=== PATIENT | female | born 2000 | race Caucasian/White ===

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

== ENCOUNTER 2024-03-11 18:01 | Inpatient (IN) ==
[2024-03-11] MEDS ORDERED: LIDOCAINE 1% LOCAL 20 ML VIAL INFIL PRN (19:36)
--- NOTE | 2024-03-11 20:48 | History & Physical Report ---
Date of Service March 11, 2024 Assessment & Plan (1) Class 3 obesity: (2) : Plan: cervical ripening with Cytotec Admission and Anticipated Discharge Date Admission Date: March 11, 2024 History of Present Illness Chief Complaint: ruptured membranes Primary Care Provider: Freddie Pierre MD 22 F P0000 at 39.2 weeks admitted with SROM clear fluid. GBS is negative. Allergies Allergy/AdvReac Type Severity Reaction Status Date / Time tizanidine Allergy Vomiting Verified 03/11/24 18:30 Home Medications Medication Instructions Recorded Confirmed Type aspirin 81 mg chewable tablet 81 mg PO DAILY 03/11/24 03/11/24 History cyanocobalamin (B12)-cobamamide 1,000 marianne sublingual DAILY 03/11/24 03/11/24 History 5,000 mcg-100 mcg sublingual lozenge (B12) ferrous sulfate 325 mg (65 mg 325 mg PO DAILY 03/11/24 03/11/24 History iron) tablet (iron) vitamins-iron fumarate 65 1 tab PO DAILY 03/11/24 03/11/24 History mg iron-folic acid 1 mg tablet venlafaxine 75 mg tablet 75 mg PO DAILY 03/11/24 03/11/24 History Patient History Medical History Pre-diabetes Migraines Anemia PCOS (polycystic ovarian syndrome) On metformin and mounjaro prior to Anxiety on effexor daily Surgical History H/O laparoscopy cyst removed from ovaries. 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 @ [employer] Feels Safe at Home: Yes Safety Concerns: Feels Safe At This Time Assistive Devices: None 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 PCOS laparroscopy Review of Systems All systems reviewed & are unremarkable except as noted in HPI & below Physical Exam Constitutional: WD/WN, vitals as above Eyes: PERRL, conjunctivae normal, anicteric sclerae Respiratory: normal respiratory effort, lungs clear to auscultation Cardiovascular: Rate/Rhythm: regular rate and regular rhythm Gastrointestinal (Abdomen): Inspection/Auscultation: abdomen normal to inspection Musculoskeletal: Extremities: extremities normal to inspection Skin: no rashes, warm and dry Neurologic: patellar DTR's 2+ bilat, sensation intact Psychiatric: A+Ox3, euthymic affect Genitourinary: OB Exam Abdomen: + fundal height and + vertex Manual OB Exam: + cervical dilation fingertip, + cervical effacement 50% and + station high OB Exam Monitor Tracing: + external FHT monitor used, + external uterine monitor used, + category I and + normal FHT variability cervix posterior, firm EFW 8-8.5 lbs. Results & Data Vital Signs (Past 12 Hours) Vital Signs Temp Pulse Resp BP 03/11/24 19:17 78 124/67 03/11/24 18:17 36.8 C 16 03/11/24 18:12 75 130/68 Monitoring External Monitor Cat 1 (2) Weeks of gestation: 39 weeks Qualified Code(s): Z3A.39 - 39 weeks gestation of
[2024-03-11 20:58] LABS: Hematocrit (blood only) 36.1 % (37.0-47.0); Mean Corpuscular Hemoglobin 30.2 pg (25.0-34.0); Mean Corpuscular Hgb Conc 33.2 g/dL (32.0-36.0); Mean Corpuscular Volume 90.7 fL (80.0-100.0); Mean Platelet Volume 9.4 fL (9.4-12.4); Platelet Count 220 K/uL (130-400); RDW Standard Deviation 43.2 fL (36.4-46.3); Red Blood Count 3.98 M/uL (4.20-5.40); White Blood Count 10.78 K/ul (4.8-10.8)
[2024-03-11] MEDS: miSOPROStoL 50 MCG TAB PO SCH (21:18)
--- OUTSIDE RECORDS SUMMARY | 2024-03-12 01:25 | External Medical Summary | Summary of Care ---
Author Name Unknown Organization [facility] Address [address] [facility] [place] [address] Phone [phone] Care Team Providers Care Artillery Officer Name Role Phone Freddie Pierre MD Primary Care Provider [phone] Encounter Details Date Type Department Care Team (Late st Contact Info) Description 03/08/2024 Telephone [facility] [address] [place] [address] Coco Farrell CRNP [address] [place] [id number] Allergies Active Allergy Reactions Criticality Noted Date Comments Tizanidine Nausea/vomiting 07/03/2023 documented as of this encounter (statuses as of 03/08/2024) Medications Medication Sig Dispensed Refills Start Date End Date Status Acetaminophen 325 MG Oral Tablet (Tylenol) Take 3 Tablets by mouth every 8 hours as needed for Pain, Mild or Pain, Moderate. Alternate with Ibuprofen 30 Tablet 1 09/30/2022 Active busPIRone HCl 5 MG Oral Tablet (Buspar)Indications:A nxiety Take 1 Tablet by mouth in the morning and 1 Tablet before bedtime. 60 Tablet 1 04/26/2023 Active Vitamin 27-0.8 MG Oral Tablet Take 1 Tablet by mouth daily. Active Ondansetron 4 MG Oral Tablet Disintegrating (Zofran) Place 1 Tablet on tongue every 8 hours as needed for Nausea. dissolve on tongue. 45 Tablet 1 09/26/2023 Active Aspirin 81 MG Oral Tablet ChewableIndications:S upervision of high risk , antepartum Take 1 Tablet by mouth daily. 90 Tablet 2 10/10/2023 Active Vitamin B-12 1000 MCG Oral Tablet (Cyanocobalamin) Take 1 Tablet by mouth daily. 90 Tablet 12/27/2023 Active Ferrous Sulfate 325 (65 Fe) MG Oral Tablet (Feosol) Take 1 Tablet by mouth daily. 90 Tablet 12/27/2023 Active Venlafaxine HCl ER 37.5 MG Oral Capsule Extended Release 24 Hour (Effexor XR)Indications:Depres julianne complicating , antepartum Take 1 Capsule by mouth in the morning. 30 Capsule 2 02/13/2024 Active documented as of this encounter (statuses as of 03/08/2024) Active Problems Problem Noted Date Diagnosed Date Fall (on) (from) unspecified stairs and steps, initial encounter 02/09/2024 Antepartum anemia complicating 024 Overview: Taking iron and vitamin B12. Needs repeat CBC NEXT appointment. Abnormal glucose tolerance in mother complicatin g 01/24/2024 Vaginal bleeding in , third trimester 0 01/03/2024 Anxiety during 09/12/2023 Overview: Desires medication. Prescription sent for Zoloft. Denies suicidal or homicidal thoughts. Patient will call the office with any concerns. Supervision of high risk , antepartum 1 09/20/2022 Overview: Estimated Date of Delivery: 03/16/24 Continue vitamin. O positive. Rubella and varicella immune. Qnatal testing low risk. MSAFP testing ordered. S/p anatomy ultrasound. S/p CBC - anemia on iron and vitamin B12. Abnormal 1 hour glucose test. Patient is going to test blood sugars for [address] of the 3 hour glucose test. Patient is going to send blood sugars via [employer] Tdap vaccine completed. GBS culture at 36 weeks. Completed influenza vaccine and covid vaccine. Formula feeding. contraception: condoms. Needs scheduled induction due to patient's fiance being refrigerated national truck driver. [place] delivery. Medication exposure during first trimester of pr egnancy 07/20/2023 Overview: Metformin, Mounjaro, Imitrex as needed, Zofran as needed, Buspar as needed Patient stopped medications with knowledge of . Encounter for gynecological examination with abnormal finding 02/28/2023 Vaginal odor 02/28/2023 Class 2 obesity in adult 10/25/2022 Female infertility 10/03/2022 Abnormal uterine bleeding (AUB) 06/29/2022 PCOS (polycystic ovarian syndrome) 04/27/2022 Overview: Advised early one hour glucose test. Chronic rhinitis 04/27/2022 Migraine without aura and wi thout status migrainosus, not intractable 04/27/2022 Scalp psoriasis 02/18/2020 FH: skin cancer 02/03/2020 Headache 08/21/2013 Overview: ICD-10 update of inactive term Estimated Date of Delivery Comme nts Yes 03/16/2024 Based on last me nstrual period of 06/10/2023 (Exact Date) documented as of this encounter (statuses as of 03/08/2024) Resolved Problems Problem Noted Date Diagnosed Date Resolved Date Left SUPRCONDYL FX HUMERUS-CL 05/21/2007 08/21/2013 ADVANCE DIRECTIVE INFORMATION 01/21/2005 02/03/2020 Overview: Not applicable (under age of 18) Febrile convulsion 11/01/2002 4 documented as of this encounter (statuses as of 03/08/2024) Immunizations Name Administration Dates Next Due COVID-19 mRNA, LNP-s, No Pre serve, 2-Dose Series (ProHatch) 08/12/2021 COVID-19, LNP-s, No Preserve , Michael-sucrose, Ages 12+ (ProHatch) 09/09/2021 DTaP Dipth/Tet/Acell Pertussis (Infanrix), Peds 03/02/2007,02/10/2003,02/08/2002,11/02,2001 HIB Hep B - HIB Hepatitis B (Comvax) 2001, 2001 HIB PRP-OMP, 3 dose (Pedvax) 11/01/2002 HIB PRP-T, 4 Dose, PF, IM (H iberix, ActHib) 02/08/2002 HPV Vaccine, 4-Valent 11/22/2012 HPV Vaccine, 9-Valent 09/16/2016,03/10/2016 Hepatitis A Vaccine 03/02/2007,12/28/2005 Hepatitis A, Ped/Adol., 18 y ear and below, 2-Dose 03/02/2007,12/28/2005 Hepatitis B, 0-19 yrs 05/21/2002 IPV - Polio Virus Vaccine (Inact) 2006,02/10/2003,2001,09/07 MMR - Measles/Mumps/Rubella Vaccine 03/02/2007,0 08/05/2002 Meningococcal Conjugate Vacc ine (Menactra/Menveo) 02/26/2018,11/22/2012 Meningococcal MCV4P Conjugat e Vaccine (Menactra) 02/26/2018,11/22/2012 PPD 01/15/2024, 4,12/08/2022,11/28,02/01/2020,07/28/2017,03/02/2004 Pneumococcal Conjugate Vacci ne, 7 Valent 11/01/2002,02/08/2002,2001,09/07 Seasonal Influenza Virus Vac cine, Unspecified Formulation 08/02/2019,05/28/2018,06/03/2013,06/13,05/06/2005 Seasonal Influenza, PF, 6 M & above, IM , (FluLaval or Fluzone) 05/16/2022,04/22/2021,05/07/2020,08/02,05/28/2018 Seasonal Influenza, Split, I IV3, With Preserve, Inj 06/03/2013,06/13/2008,05/06/2005 TDAP (age 10 and older)(Boostrix) 12/26/2023,,11/22/2012 Varicella Vaccine (Chicken Pox) 03/02/2007,08/05 documented as of this encounter Social History Tobacco Use Types Packs/Day Years Used Date Smoking Tobacco: Never Smokeless Tobacco: Never Alcohol Use Standard Drinks/Week Comments Not Currently 0 (1 standard drink = 0.6 oz pur e alcohol) rare PHQ-2 Answer Date Recorded PHQ Adult Total Score 1 12/26/2023 Hunger Vital Sign Answer Date Recorded Within the past 12 months, y ou worried that your food would run out before you got the money to buy more. Patient declined Within the past 12 months, t he food you bought just didn't last and you didn't have money to get more. Patient declined [place] Depression Scale Answer Date Recorded [place] Depression Scale Total 12 02/13/2024 The thought of harming myself has occurred to me . Never 02/13/2024 Childcare Answer Date Recorded Do you feel overwhelmed with taking care of a child, family member or friend? No 02/17/2023 Does your family need help f inding childcare? (Household - for ages 0-17 years) Not on file 02/17/2023 Clothing Answer Date Recorded Have you been unable to get clothing when it was really needed? No 02/17/2023 Is your family able to get c lothes or diapers when needed? (Household - for ages 0-17 years) Not on file 02/17/2023 Personal Safety Answer Date Recorded Do you feel unsafe or have concerns for your saf ety? No 02/17/2023 Do you have concerns for you r family's safety? (Household - for ages 0-17 years) Not on file 02/17/2023 Utilities Answer Date Recorded Do you have trouble paying y our heating, water, or electric bill? (Adult - for ages 18 years and over) Not on file 02/20/2024 Is your family able to pay t he heat, water, or electric bill? (Household - for ages 0-17 years) Not on file 02/20/2024 Does your family have access to good internet? (Household - for ages 0-17 years) Not on file 02/20/2024 Employment Status Answer Date Recorded Are you unemployed or without regular income? No 02/17/2023 Does the household have a re gular source of income? (Household - for ages 0-17 years) Not on file 02/17/2023 Social Connections Answer Date Recorded How often do you feel lonely or isolated from those around you? (Adult - for ages 18 years and over) Not on file 02/20/2024 Financial Resource Strain Answer Date R ecorded Do you have any trouble payi ng for your medications, or do you think you might in the future? No 02/17/2023 Does your family have troubl e paying for medicine? (Household - for ages 0-17 years) Not on file 02/17/2023 Transportation Needs Answer Date Record ed READ ONLY Do you have troubl e getting a ride to medical visits or work? Never True 02/17/2023 Does your family have a hard time getting a ride to doctors visits? (Household - for ages 0-17 years) Not on file 02/17/2023 Has lack of transportation k ept you from medical appointments, meetings, work, or from getting things needed for daily living? Check all that apply. (Adult - for ages 18 years and over) Not on file 02/17/2023 Do you (or your family) have trouble finding or paying for a ride (transportation)? (Household - for ages 0-17 years) Not on file 02/17/2023 Housing Stability Answer Date Recorded Do you currently live in a s helter or have no steady place to sleep at night? No 02/17/2023 READ ONLY Do you think you a re at risk of becoming homeless? No 02/17/2023 Does your family worry about paying for your home or becoming homeless? (Household - for ages 0-17 years) Not on file 0 02/17/2023 Are you homeless or worried that you might be in the future? (Adult - for ages 18 years and over) Not on file Are you (or your family) adela eless or worried that you might be in the future? (Household - for ages 0-17 years) Not on file Food Insecurity Answer Date Recorded Do you need food for this week? No 02/17/2023 Are you able to get enough f ood for your family? (Household - for ages 0-17 years) Not on file 02/17/2023 Does your family need food t his week? (Household - for ages 0-17 years) Not on file 02/17/2023 Do you always have enough fo od for your family? (Household - for ages 0-17 years) Not on file 02/17/2023 Estimated Date of Delivery Comme nts Yes 03/16/2024 Based on last me nstrual period of 06/10/2023 (Exact Date) Sex and Gender Information Value Date Recorded Sex Assigned at Female 02/23/2021 2:38 PM EDT Gender Identity Female 02/23/2021 2:38 PM EDT Sexual Orientation Straight 02/23/2021 2: 38 PM EDT Job Start Date Occupation Industry Not on file Not on file Not on file documented as of this encounter Miscellaneous Notes * Telephone Encounter - Yi Alvarado RN - 03/08/2024 3:45 PM EDT Pt is aware and understanding. She will check her next appt to see if there have been other dates that have opened. Pt advised that the chance to still get bumped due to the elective nature may occur. Pt aware. * Telephone Encounter - Ella Mack LPN - 03/08/2024 3:32 PM EDT Due to another medically necessary induction, patients IOL had to be moved to 03/21. This was L+Ds first available. documented in this encounter Plan of Treatment Upcoming Encounters Date Type Department Care Team (Late st Contact Info) Description 03/13/2024 8:15 AM EDT Office [facility] [address] [place] [id number] Coco Farrell CRNP [address] [place] [address] 09/10/2024 9:20 AM EST Telemedicine Endocrinology [address] [place] [phone] Remy Tavarez, DO [address] [place] [address] [place] [id number] Health Maintenance Due Date Last Done Comments COVID-19 Vaccine ( season) 2023 09/09/2021, 08/12/2021 Influenza Vaccine (FLU shot) (#1) 2024 05/23/2023, 10/24/2022, 05/16/2022, Additional history exists Gonorrhea / Chlamydia Screen 07/18/2024, 02/28/2023, 02/23/2021, Additional history exists Depression Screening 12/25/2024 12/26/2023 Pap Smear 02/28/2026 02/28/2023 DTaP,Tdap,and Td Vaccines (9 - Td or Tdap) 12/25/2033 12/26/2023, 08/09/2019, 11/22/2012, Additional history exists Hepatitis B Vaccine Completed 05/21/2002, 2001, 2001 HPV (Gardasil) Vaccine Completed 7, 03/10/2016, 11/22/2012 MENINGOCOCCAL (MENACTRA/MENVEO) Completed 02/26/2018, 02/26/2018, 11/22/2012, Additional history exists Pneumococcal Vaccine: Pediatrics (0 to 5 Years) and At-Risk Patients (6 to 64 Years) Aged Out No longer eligible based on patient's age to complete this topic documented as of this encounter Medical Devices Implanted Type Area Information Management Manager Device Identifier Shelf Expiration Date Model / Serial / Lot K-Wire .062 9in [id number] - [id number] Implanted:Qty: 2 on 05/22/2007 at [facility] Left: Elbow [employer] [id number] / / K-Wire .045 9in [id number] - [id number] Implanted:Qty: 1 on 05/22/2007 at [facility] Left: Elbow [employer] [id number] / / documented as of this encounter Advance Directives * Full Code (Latest Code Status on File) Date Activated Date Inactivated Comments 09/30/2022 10:47 AM 09/30/2022 5:09 PM This order reflects the patients wishes and were consensually agreed upon. Question Answer Comments Discussion of Advance Directives occurred with: Patient * Full Code Date Activated Date Inactivated Comments 07/27/2021 11:55 AM 07/27/2021 5:31 PM This order re flects the patients wishes and were consensually agreed upon. Question Answer Comments Discussion of Advance Directives occurred with: Not Discussed * Full Code Date Activated Date Inactivated Comments 05/22/2007 10:49 AM 05/22/2007 9:07 PM Care Teams Artillery Officer Relationship Specialty Start Date End Date Freddie Pierre MD [address] [place] [address] PCP - General Family Medicine 05/30/13 documented as of this encounter
--- OUTSIDE RECORDS SUMMARY | 2024-03-12 01:25 | External Medical Summary | Summary of Care ---
Author Name Unknown Organization [facility] Address [address] [facility] [place] [address] Phone [phone] Care Team Providers Care Assistant To The Director Name Role Phone Freddie Pierre MD Primary Care Provider [phone] Reason for Visit * Reason Comments Return Visit Encounter Details Date Type Department Care Team (Late st Contact Info) Description 03/06/2024 8:15 AM EDT Office Visit Gynecology/Obstetric s [facility] [address] [place] [address] Coco Farrell CRNP [address] [place] [address] PCOS (polycystic ovarian syndrome)*; Supervision of high risk , antepartum; Medication exposure during first trimester of ; Anxiety during ; Antepartum anemia complicating ; Abnormal glucose tolerance in mother complicating ; Fall (on) (from) unspecified stairs and steps, initial encounter Allergies Active Allergy Reactions Criticality Noted Date Comments Tizanidine Nausea/vomiting 07/03/2023 documented as of this encounter (statuses as of 03/06/2024) Medications Medication Sig Dispensed Refills Start Date [...] as of this encounter (statuses as of 03/06/2024) Active Problems Problem Noted Date Diagnosed Date [...] is going to send blood sugars via [facility]. Tdap vaccine completed. GBS culture at 36 weeks. Completed influenza vaccine and covid vaccine. Formula feeding. contraception: condoms. Needs scheduled induction due to patient's fiance being diesel truck mechanic. [facility] [place] delivery. Medication exposure during first trimester of [...] as of this encounter (statuses as of 03/06/2024) Resolved Problems Problem Noted Date Diagnosed Date Resolved Date Left SUPRCONDYL FX HUMERUS-CL 05/21/2007 08/21/2013 ADVANCE DIRECTIVE INFORMATION 01/21/2005 02/03/2020 Overview: Not applicable (under age of 18) Febrile convulsion 11/01/2002 4 documented as of this encounter (statuses as of 03/06/2024) Immunizations Name Administration Dates Next Due COVID-19 mRNA, LNP-s, No Pre serve, 2-Dose Series ([place]ok) 08/12/2021 COVID-19, LNP-s, No Preserve , Michael-sucrose, Ages 12+ (Pfizer) 09/09/2021 DTaP Dipth/Tet/Acell Pertussis (Infanrix), Peds 03/02/2007 HPV Vaccine, 4-Valent 11/22/2012 HPV Vaccine, 9-Valent 09/16/2016,03/10/2016 Hepatitis A Vaccine 03/02/2007,12/28/2005 Hepatitis A, Ped/Adol., 18 y ear and below, 2-Dose 03/02/2007,12/28/2005 IPV - Polio Virus Vaccine (Inact) 03/02/2007 MMR - Measles/Mumps/Rubella Vaccine 03/02/2007 Meningococcal Conjugate Vacc ine (Menactra/Menveo) 02/26/2018,11/22/2012 Meningococcal MCV4P Conjugat e Vaccine (Menactra) 02/26/2018,11/22/2012 PPD 01/15/2024,,12/08/2022,11/28,02/01/2020,07/28/2017 Seasonal Influenza Virus Vac cine, Unspecified Formulation 08/02/2019,05/28/2018,06/03/2013,06/13,05/06/2005 Seasonal Influenza, PF, 6 M & above, IM , (FluLaval or Fluzone) 05/16/2022,04/22/2021,05/07/2020,08/02,05/28/2018 Seasonal Influenza, Split, I IV3, With Preserve, Inj 06/03/2013,06/13/2008 TDAP (age 10 and older)(Boostrix) 12/26/2023,,11/22/2012 Varicella Vaccine (Chicken Pox) 03/02/2007 documented as of this encounter Social History [...] have money to get more. Patient declined [place] Depression Scale Answer Date Recorded [place] Depression Scale Total 12 02/13/2024 The thought [...] on file documented as of this encounter Last Filed Vital Signs Vital Sign Reading Time Taken Comments Blood Pressure 116/76 03/06/2024 8:06 AM EDT Pulse - - Temperature - - Respiratory Rate - - Oxygen Saturation - - Inhaled Oxygen Concentration - - Weight 119.3 kg (263 lb) 03/06/2024 8:06 AM EDT Height - - Body Mass Index 39.99 02/27/2024 11:39 AM EDT documented in this encounter Progress Notes * Coco Farrell CRNP - 03/06/2024 8:25 AM EDT 38w4d Anxious about delivery, concerned about hemorrhage. No other concerns. Baby is active. No contractions, bleeding, LOF. IOL 03/14. JOSE F Adams * Faith Obregon LPN - 03/06/2024 8:05 AM EDT 38w4d Denies vaginal bleeding/rom + movement No new concerns documented in this encounter Plan of Treatment Upcoming Encounters Date Type Department Care Team (Late st Contact Info) Description 03/13/2024 8:15 AM EDT Office Visit [facility]necology[facility]s [facility] [place] [address] Coco Farrell CRNP [address] [place] [address] 09/10/2024 9:20 AM EST Telemedicine Endocrinology [address] [place] [phone] Remy Tavarez, DO [address] [place] [address] [place] [address] Health Maintenance Due Date Last Done Comments COVID-19 Vaccine (2022- season) 2023 09/09/2021, 08/12/2021 Influenza Vaccine (FLU [...] this encounter Medical Devices Implanted Type Area Cash Posting Specialist Device Identifier Shelf Expiration Date Model / Serial / Lot K-Wire .062 9in 1600-962ns - [id number] [place] [facility] [place] Elbow Micro-Aire 1600-962NS / / K-Wire .045 9in 1600-945ns - [id number] Implanted:Qty: 1 on 05[place]22/2007 [place] [facility] [place] Elbow Micro-Aire 1600-945NS / / documented as of this encounter Visit Diagnoses Diagnosis PCOS (polycystic ovarian syndrome)- Primary Polycystic ovaries Supervision of high risk , antepartum Medication exposure during first trimester of Supervision of other high-risk Anxiety during Antepartum anemia complicating Anemia, antepartum Abnormal glucose tolerance in mother complicating Abnormal maternal glucose tolerance, complicating , childbirth, or the puerperium, unspecified as to episode of care Fall (on) (from) unspecified stairs and steps, initial encounter documented in this encounter Advance Directives * Full Code [...] 10:49 AM 05/22/2007 9:07 PM Care Teams Assistant To The Director Relationship Specialty Start Date End Date Freddie Pierre MD [address] [place] [id number] PCP - General Family Medicine 05/30/13 documented as of this encounter
--- OUTSIDE RECORDS SUMMARY | 2024-03-12 01:25 | External Medical Summary | Summary of Care ---
Author Name Unknown Organization [facility] Address [address] [facility] [place] [address] Phone [phone] Care Team Providers Care It Application Support Analyst Name Role Phone Freddie Pierre MD Primary Care Provider [phone] Encounter Details Date Type Department Care Team (Late st Contact Info) Description 03/08/2024 Telephone [facility]necology[facility]st[facility]s [facility] [address] [place] [address] Coco Farrell CRNP [address] [place] [...] is going to send blood sugars via [employer]. Tdap vaccine completed. GBS culture at 36 weeks. Completed influenza vaccine and covid vaccine. Formula feeding. contraception: condoms. Needs scheduled induction due to patient's fiance being overhauler bus truck. [place] delivery. Medication exposure during first trimester of [...] mRNA, LNP-s, No Pre serve, 2-Dose Series ([employer]) 08/12/2021 COVID-19, LNP-s, No Preserve , Michael-sucrose, Ages 12+ ([employer]) 09/09/2021 DTaP Dipth/Tet/Acell Pertussis (Infanrix), Peds 03/02/2007,02/10/2003,02/08/2002,11/02,2001 [...] have money to get more. Patient declined [place] Depression Scale Answer Date Recorded [place] Depression Scale Total 12 02/13/2024 The thought [...] on file Are you (or your family) adlea eless or worried that you might be [...] 03/13/2024 8:15 AM EDT Office Visit Gynecology/[facility]stetrics [facility] [address] [place] [address] Coco Farrell CRNP [address] [place] [address] 09/10/2024 9:20 AM EST Telemedicine Endocrinology [address] [place] [phone] Remy Tavarez, DO [address] [place] [address] [place] [address] Health Maintenance Due Date Last Done Comments [...] this encounter Medical Devices Implanted Type Area Traffic Signal Mechanic Device Identifier Shelf Expiration Date Model / Serial / Lot K-Wire .062 9in 1600-962ns - [id number] Implanted:Qty: 2 on 05/22/2007 at OR [facility] Left: Elbow Micro-Aire 1600-962NS / / K-Wire .045 9in 1600-945ns - [id number] Implanted:Qty: 1 on 05/22/2007 at OR [facility] Left: Elbow Micro-Aire 1600-945NS / / documented [...] 10:49 AM 05/22/2007 9:07 PM Care Teams It Application Support Analyst Relationship Specialty Start Date End Date Freddie Pierre MD [address] [place] [address] PCP - General Family Medicine 05/30/13 documented as of this encounter
--- OUTSIDE RECORDS SUMMARY | 2024-03-12 01:26 | External Medical Summary | Summary of Care ---
Author Name Unknown Organization [facility] Address [address] [place] [address] Phone [phone] Care Team Providers Care Plate Conditioner Name Role Phone Freddie Pierre MD Primary Care Provider [phone] Encounter Details Date Type Department Care Team (Late st Contact Info) Description 02/09/2024 11:45 AM EDT Office Visit Gynecology/Obstetric [facility] [address] [facility] [place] [address] Mony Welsh CN [address] [place] [address] PCOS (polycystic ovarian syndrome)*; Supervision of high risk , antepartum; Medication exposure during first trimester of ; Anxiety during ; Antepartum anemia complicating ; Abnormal glucose tolerance in mother complicating ; Fall (on) (from) unspecified stairs and steps, initial encounter Allergies Active Allergy Reactions Criticality Noted Date Comments Tizanidine Nausea/vomiting 07/03/2023 documented as of this encounter (statuses as of 02/09/2024) Medications Medication Sig Dispensed Refills Start Date End Date Status Acetaminophen 325 MG Oral Tablet (Tylenol) Take 3 Tablets by mouth every 8 hours as needed for Pain, Mild or Pain, Moderate. Alternate with Ibuprofen 30 Tablet 1 09/30/2022 Active busPIRone HCl 5 MG Oral Tablet (Buspar)Indications:An xiety Take 1 Tablet by mouth in the morning and 1 Tablet before bedtime. 60 Tablet 1 04/26/2023 Active Vitamin 27-0.8 MG Oral Tablet Take 1 Tablet by mouth daily. Active Sertraline HCl 50 MG Oral Tablet (Zoloft)Indications:An xiety during Take 1/2 tablet by mouth daily for 2 weeks and then increase to 1 tablet by mouth daily. 30 Tablet 6 09/12/2023 Active Ondansetron 4 MG Oral Tablet Disintegrating (Zofran) Place 1 Tablet on tongue every 8 hours as needed for Nausea. dissolve on tongue. 45 Tablet 1 09/26/2023 Active Aspirin 81 MG Oral Tablet ChewableIndications:Rojo pervision of high risk , antepartum Take 1 Tablet by mouth daily. 90 Tablet 2 10/10/2023 Active Vitamin B-12 1000 MCG Oral Tablet (Cyanocobalamin) Take 1 Tablet by mouth daily. 90 Tablet 12/27/2023 Active Ferrous Sulfate 325 (65 Fe) MG Oral Tablet (Feosol) Take 1 Tablet by mouth daily. 90 Tablet 12/27/2023 Active documented as of this encounter (statuses as of 02/09/2024) Active Problems Problem Noted Date Diagnosed Date [...] is going to send blood sugars via [employer]. Tdap vaccine completed. GBS culture at 36 weeks. Completed influenza vaccine and covid vaccine. Formula feeding. contraception: condoms. Needs scheduled induction due to patient's fiance being catering truck driver. [facility] [place] delivery. Medication exposure during first [...] as of this encounter (statuses as of 02/09/2024) Resolved Problems Problem Noted Date Diagnosed Date Resolved Date Left SUPRCONDYL FX HUMERUS-CL 05/21/2007 08/21/2013 ADVANCE DIRECTIVE INFORMATION 01/21/2005 02/03/2020 Overview: Not applicable (under age of 18) Febrile convulsion 11/01/2002 4 documented as of this encounter (statuses as of 02/09/2024) Immunizations Name Administration Dates Next Due COVID-19 mRNA, LNP-s, No Pre serve, 2-Dose Series (Pfizer) 08/12/2021 COVID-19, LNP-s, No Preserve , Michael-sucrose, [...] Conjugat e Vaccine (Menactra) 02/26/2018,11/22/2012 PPD 01/15/2024, 4,12/08/2022,11/28,02/01/2020,07/28/2017 Seasonal Influenza Virus Vac cine, Unspecified Formulation [...] have money to get more. Patient declined [place] Depression Scale Answer Date Recorded [place] Depression Scale Total 4 07/18/2023 The thought of harming myself has occurred to me . Never 07/18/2023 Childcare Answer Date Recorded Do you feel [...] y our heating, water, or electric bill? No 02/17/2023 Is your family able to pay t he heat, water, or electric bill? (Household - for ages 0-17 years) Not on file 02/17/2023 Does your family have access to good internet? (Household - for ages 0-17 years) Not on file 02/17/2023 Employment Status Answer Date Recorded Are you unemployed or without regular income? No 02/17/2023 Does the household have a re gular source of income? (Household - for ages 0-17 years) Not on file 02/17/2023 Social Connections Answer Date Recorded How often do you feel lonely or isolated from th ose around you? Never 02/17/2023 Financial Resource Strain Answer Date R ecorded [...] Sign Reading Time Taken Comments Blood Pressure 120/72 02/09/2024 11:50 AM EDT Pulse - - Temperature - - Respiratory Rate - - Oxygen Saturation - - Inhaled Oxygen Concentration - - Weight 113.4 kg (250 lb) 02/09/2024 11:50 AM EDT Height 172.7 cm (5' 8") 02/09/2024 11:50 AM EDT Body Mass Index 38.01 02/09/2024 11:50 AM EDT documented in this encounter Progress Notes * Mony Welsh CNM - 02/09/2024 11:56 AM EDT ty Monsalve 23 yo @ 34.6 wks presents today after having fallen on her butt down 5 steps yesterday. She did go to the ED, where she reports FHTs were done by Doppler. They also bandaged a laceration on ankle. Denies VB, LOF, cxns. Reports normal FM since the fall. ASSESSMENT assessment with Non-stress Test completed on 02/09/2024 at 34.6 weeks gestation for indicationof a fall >24hrs ago heart baseline: 130 bpm Variability: Moderate Decelerations: absent Accelerations: present Contractions: None NST start time: 1153 NST stop time: 1237 NST strip reviewed, interpreted, and approved by OB provider, Mony Welsh CNM. NST strip stored in clinic storage file documented in this encounter Nursing Notes * Julia Salinas LPN - 02/09/2024 11:52 AM EDT 34w6d Pt fell down the stairs yesterday landed on tailbone Went to [facility] ER was not seen by L&D documented in this encounter Plan of Treatment Upcoming Encounters Date Type Department Care Team (Late st Contact Info) Description 02/13/2024 8:15 AM EDT Imaging Radiology, [address] [address] 02/13/2024 9:15 AM EDT Office Visit Gynecology/Obstetics [address] [place] [phone] Rita Callaway PA-C [address] [facility] [place] [phone] 09/10/2024 9:20 AM EST Telemedicine Endocrinology [address] [place] [phone] Remy Tavarez, [address] [place] [address] Health Maintenance Due Date Last Done Comments [...] this encounter Medical Devices Implanted Type Area Liaison Inspection Laboratory Assistant Device Identifier Shelf Expiration Date Model / Serial / Lot K-Wire .062 9in 1600-962ns - [id number] Implanted:Qty: 2 on 05/22/[address] [facility] Left: Elbow Micro-Aire 1600-962NS / / K-Wire .045 9in 1600-945ns - [id number] Implanted:Qty: 1 on 05/22/[address] [facility] Left: Elbow Micro-Aire 1600-945NS / / documented [...] 10:49 AM 05/22/2007 9:07 PM Care Teams Plate Conditioner Relationship Specialty Start Date End Date Freddie Pierre MD [address] [place] [address] PCP - General Family Medicine 05/30/13 documented as of this encounter
--- OUTSIDE RECORDS SUMMARY | 2024-03-12 01:26 | External Medical Summary | Summary of Care ---
Author Name Unknown Organization [facility] Address [address] [facility] [place] [address] Phone [phone] Care Team Providers Care Clinical Office Technician Name Role Phone Freddie Pierre MD Primary Care Provider [phone] Reason for Visit * Reason Comments Return Visit Encounter Details Date Type Department Care Team (Late st Contact Info) Description 02/27/2024 11:45 AM EDT Office Visit Gynecology/Obstetric s Chilo Dong [address] [place] [address] Coco Farrell CRNP [address] [place] [address] Supervision of high risk , antepartum*; PCOS (polycystic ovarian syndrome); Medication exposure during first trimester of ; Anxiety during ; Antepartum anemia complicating ; Abnormal glucose tolerance in mother complicating ; Fall (on) (from) unspecified stairs and steps, initial encounter Allergies Active Allergy Reactions Criticality Noted Date Comments Tizanidine Nausea/vomiting 07/03/2023 documented as of this encounter (statuses as of 02/27/2024) Medications Medication Sig Dispensed Refills Start Date [...] as of this encounter (statuses as of 02/27/2024) Active Problems Problem Noted Date Diagnosed Date [...] scheduled induction due to patient's fiance being truck guard. [facility] [place] delivery. Medication exposure during first [...] as of this encounter (statuses as of 02/27/2024) Resolved Problems Problem Noted Date Diagnosed Date Resolved Date Left SUPRCONDYL FX HUMERUS-CL 05/21/2007 08/21/2013 ADVANCE DIRECTIVE INFORMATION 01/21/2005 02/03/2020 Overview: Not applicable (under age of 18) Febrile convulsion 11/01/2002 4 documented as of this encounter (statuses as of 02/27/2024) Immunizations Name Administration Dates Next Due COVID-19 mRNA, LNP-s, No Pre serve, 2-Dose Series ([place]) 08/12/2021 COVID-19, LNP-s, No Preserve , Michael-sucrose, [...] have money to get more. Patient declined [place] Depression Scale Answer Date Recorded [place] Depression Scale Total 12 02/13/2024 The thought [...] Sign Reading Time Taken Comments Blood Pressure 118/68 02/27/2024 11:39 AM EDT Pulse - - Temperature - - Respiratory Rate - - Oxygen Saturation - - Inhaled Oxygen Concentration - - Weight 116.6 kg (257 lb) 02/27/2024 11:39 AM EDT Height 172.7 cm (5' 8") 02/27/2024 11:39 AM EDT Body Mass Index 39.08 02/27/2024 11:39 AM EDT documented in this encounter Progress Notes * Coco Farrell CRNP - 02/27/2024 12:11 PM EDT 37w3d Discussed movement. Movement has been less for weeks. Has an anterior placenta. Feeling movement daily, feels it is her baseline. Increased Effexor last week, hasn't noticed a significant improvement in mood yet. Denies bleeding, LOF. Some BH contractions. Advised to call with less than 10 movements in 2 hours. JOSE F Adams documented in this encounter Nursing Notes * Ella Mack LPN - 02/27/2024 11:45 AM EDT 37w3d Concerns with movement. Reviewed kick counts and given triage number. documented in this encounter Plan of Treatment Upcoming Encounters Date Type Department Care Team (Late st Contact Info) Description 03/06/2024 8:15 AM EDT Office Visit Gynecology/Obstetrics [facility] [address] [place] [address] Coco Farrell CRNP [address] [place] [address] 09/10/2024 9:20 AM EST Telemedicine Endocrinology [address] [place] [phone] [place] [address] Health Maintenance Due Date Last Done Comments [...] this encounter Medical Devices Implanted Type Area Batch Analyst Device Identifier Shelf Expiration Date Model / Serial / Lot K-Wire .062 9in 1600-962ns - [id number] Implanted:Qty: 2 on 05/22/2007 at [place] [facility] [place] Left: Elbow Micro-Aire 1600-962NS / / K-Wire .045 9in 1600-945ns - [id number] Implanted:Qty: 1 on 05/22/2007 at [place] [facility] [place]: Elbow Micro-Aire 1600-945NS / / documented as of this encounter Visit Diagnoses Diagnosis Supervision of high risk , antepartum- Primary PCOS (polycystic ovarian syndrome) Polycystic ovaries Medication exposure during first trimester of Supervision [...] 10:49 AM 05/22/2007 9:07 PM Care Teams Clinical Office Technician Relationship Specialty Start Date End Date Freddie Pierre MD [address] [place] [phone] PCP - General Family Medicine 05/30/13 documented as of this encounter
--- OUTSIDE RECORDS SUMMARY | 2024-03-12 01:26 | External Medical Summary ---
Author Name Unknown Address Unknown Organization [id number]:[facility] [place] [address] [place] [address] Laboratory Report Ordering Provider Test Date Status CURRYJACOB 02/13/2024 11:05:48 Final Observation Date Value Abnormality Reference (Units ) Status Streptococcus agalactiae DNA [Presence] in Specimen by KALPESH with probe detection 02/13/2024 11:05:48 Negative Negative Final No Group B Streptococcus det ected by culture-enhanced PCR (amplified probe). GBS GBSCT - [facility] 02/13/2024 11:05:48 0.0 Final GBS SPCCT - [facility] 02/13/2024 11:05:48 31.4 Final Performing Location [facility] [place] [address] [place] [address]
--- OUTSIDE RECORDS SUMMARY | 2024-03-12 01:26 | External Medical Summary | Summary of Care ---
Author Name Unknown Organization [facility] Address [address] [address] Phone [phone] Care Team Providers Care Air Traffic Instructor Name Role Phone Freddie Pierre MD Primary Care Provider [phone] Reason for Visit * Reason Comments Return Visit Encounter Details Date Type Department Care Team (Late st Contact Info) Description 02/20/2024 8:00 AM EDT Office Visit Gynecology/Obstetric s Chilo Dong [address] [place] [address] Coco Farrell CRNP [address] [place] [id number] Supervision of high risk in third trimester*; PCOS (polycystic ovarian syndrome); Medication exposure during first trimester of ; Anxiety during ; Antepartum anemia complicating ; Abnormal glucose tolerance in mother complicating Allergies Active Allergy Reactions Criticality Noted Date Comments Tizanidine Nausea/vomiting 07/03/2023 documented as of this encounter (statuses as of 02/20/2024) Medications Medication Sig Dispensed Refills Start Date [...] as of this encounter (statuses as of 02/20/2024) Active Problems Problem Noted Date Diagnosed Date [...] is going to send blood sugars via [employer]. Tdap vaccine completed. GBS culture at 36 weeks. Completed influenza vaccine and covid vaccine. Formula feeding. contraception: condoms. Needs scheduled induction due to patient's fiance being tractor trailer truck driver. [place] delivery. Medication exposure during first trimester of [...] as of this encounter (statuses as of 02/20/2024) Resolved Problems Problem Noted Date Diagnosed Date Resolved Date Left SUPRCONDYL FX HUMERUS-CL 05/21/2007 08/21/2013 ADVANCE DIRECTIVE INFORMATION 01/21/2005 02/03/2020 Overview: Not applicable (under age of 18) Febrile convulsion 11/01/2002 4 documented as of this encounter (statuses as of 02/20/2024) Immunizations Name Administration Dates Next Due COVID-19 mRNA, LNP-s, No Pre serve, 2-Dose Series ([employer]) 08/12/2021 COVID-19, LNP-s, No Preserve , Michael-sucrose, Ages 12+ ([employer]) 09/09/2021 DTaP Dipth/Tet/Acell Pertussis (Infanrix), Peds 03/02/2007 [...] have money to get more. Patient declined [place] Depression Scale Answer Date Recorded [place] Depression Scale Total 12 02/13/2024 The thought [...] 02/17/2023 Does the household have a re lar source of income? (Household - for ages [...] Sign Reading Time Taken Comments Blood Pressure 124/68 02/20/2024 7:47 AM EDT Pulse - - Temperature - - Respiratory Rate - - Oxygen Saturation - - Inhaled Oxygen Concentration - - Weight 115.7 kg (255 lb) 02/20/2024 7:47 AM EDT Height 172.7 cm (5' 8") 02/20/2024 7:47 AM EDT Body Mass Index 38.77 02/20/2024 7:47 AM EDT documented in this encounter Progress Notes * Coco Farrell CRNP - 02/20/2024 8:21 AM EDT 36w3d Transfer of care from [place], desires delivery at [facility]. Has a history of depression, was advised to stop her Effexor at the start of . Was taking 150mg daily. Put on sertraline but not helping. Last week admitted that her mooed was not good, and was restarted on 37.5mg Effexor. Has not noticed an improvement. Discussed that this needs increased. She has a fear that the hospital will think she is a bad mother for having her baby go through withdrawal from the Effexor. We had a discussion about stable maternal mental health, need for stability to help with changes. She is agreeable to increase her Effexor, will take 2 tablets daily and reassess at her next visit. She was told at [place] that IOL will be scheduled at 39w d/t her partner being a tractor trailer truck driver, so he will be home for delivery. Discussed that elective induction is typically not performed for this reason at [facility], however because she was told this would occur, we will schedule this. We discussed that elective inductions are first to be bumped for more urgent deliveries. She noticed a clear vaginal discharge 2 days ago, but none since. Does not feel that her water broke. GBS was done last week at [place] office. She denies bleeding. Some BH contractions. JOSE F Adams documented in this encounter Nursing Notes * Ella Mack LPN - 02/20/2024 7:56 AM EDT 36w2d Started effexor a week ago, no noticeable improvement yet. ?discharge documented in this encounter Plan of Treatment Upcoming Encounters Date Type Department Care Team (Late st Contact Info) Description 09/10/2024 9:20 AM EST Telemedicine Endocrinology [address] [place] [phone] Remy Tavarez, [address] [place] [address] Health Maintenance Due Date [...] Completed 02/26/2018, 02/26/2018, 11/22/2012, Additional history exists HIV Screening Completed 07/18/2023, 08/24, 02/18/2020 Hepatitis C Screening Completed 07/18/2023, 022 Pneumococcal Vaccine: Pediatrics (0 to 5 Years) and At-Risk Patients (6 to 64 Years) Aged Out No longer eligible based on patient's age to complete this topic documented as of this encounter Medical Devices Implanted Type Area Insurance Salesman Device Identifier Shelf Expiration Date Model / Serial / Lot K-Wire .062 9in [id number] - [id number] Implanted:Qty: 2 on 05/22/2007 at [place] [facility] [place] Left: El[employer] 1600-962NS / / K-Wire .045 9in [id number] - [id number] Implanted:Qty: 1 on 05/22/2007 at OR [facility] [place] Left: Elbow [employer]ire [id number] / / documented as of this encounter Visit Diagnoses Diagnosis Supervision of high risk in third trimester- Primary Unspecified high-risk PCOS (polycystic ovarian syndrome) Polycystic ovaries Medication exposure during first trimester of Supervision of other high-risk Anxiety during Antepartum anemia complicating Anemia, antepartum Abnormal glucose tolerance in mother complicating Abnormal maternal glucose tolerance, complicating , childbirth, or the puerperium, unspecified as to episode of care documented in this encounter Advance Directives * [...] 10:49 AM 05/22/2007 9:07 PM Care Teams Air Traffic Instructor Relationship Specialty Start Date End Date Freddie Pierre MD [address] [place] [id number] PCP - General Family Medicine 05/30/13 documented as of this encounter
--- OUTSIDE RECORDS SUMMARY | 2024-03-12 01:26 | External Medical Summary | Summary of Care ---
Author Name Unknown Organization [facility] Address [address] [place] [address] Phone [phone] Care Team Providers Care Mortgage Loan Coordinator Name Role Phone Freddie Pierre MD Primary Care Provider [phone] Reason for Visit * Reason Comments Return Visit Encounter Details Date Type Department Care Team (Late st Contact Info) Description 02/13/2024 9:15 AM EDT Office Visit Gynecology/Obstetics [place] [address] [place] [address] Rita Callaway PA-C [address] [place] [address] Supervision of high risk , antepartum*; Depression complicating , antepartum Allergies Active Allergy Reactions Criticality Noted Date Comments Tizanidine Nausea/vomiting 07/03/2023 documented as of this encounter (statuses as of 02/13/2024) Medications Medication Sig Dispensed Refills Start Date End Date Status Acetaminophen 325 MG Oral Tablet (Tylenol) Take 3 Tablets by mouth every 8 hours as needed for Pain, Mild or Pain, Moderate. Alternate with Ibuprofen 30 Tablet 1 09/30/2022 Active busPIRone HCl 5 MG Oral Tablet (Buspar)Indications: Anxiety Take 1 Tablet by mouth in the morning and 1 Tablet before bedtime. 60 Tablet 1 04/26/2023 Active Vitamin 27-0.8 MG Oral Tablet Take 1 Tablet by mouth daily. Active Ondansetron 4 MG Oral Tablet Disintegrating (Zofran) Place 1 Tablet on tongue every 8 hours as needed for Nausea. dissolve on tongue. 45 Tablet 1 09/26/2023 Active Aspirin 81 MG Oral Tablet ChewableIndications: Supervision of high risk , antepartum Take 1 [...] Oral Capsule Extended Release 24 Hour (Effexor XR)Indications:Depre ssion complicating , antepartum Take 1 Capsule by mouth in the morning. 30 Capsule 2 02/13/2024 Active Sertraline HCl 50 MG Oral Tablet (Zoloft)Indications: Anxiety during Take 1/2 tablet by mouth daily for 2 weeks and then increase to 1 tablet by mouth daily. 30 Tablet 6 09/12/2023 Discontinue d(Patient preference/ discontinua tion) documented as of this encounter (statuses as of 02/13/2024) Active Problems Problem Noted Date Diagnosed Date [...] is going to send blood sugars via [employer]. Tdap vaccine completed. GBS culture at 36 weeks. Completed influenza vaccine and covid vaccine. Formula feeding. contraception: condoms. Needs scheduled induction due to patient's fiance being sprinkler truck driver. [place] delivery. Medication exposure during first trimester [...] as of this encounter (statuses as of 02/13/2024) Resolved Problems Problem Noted Date Diagnosed Date Resolved Date Left SUPRCONDYL FX HUMERUS-CL 05/21/2007 08/21/2013 ADVANCE DIRECTIVE INFORMATION 01/21/2005 02/03/2020 Overview: Not applicable (under age of 18) Febrile convulsion 11/01/2002 4 documented as of this encounter (statuses as of 02/13/2024) Immunizations Name Administration Dates Next Due COVID-19 mRNA, LNP-s, No Pre serve, 2-Dose Series ([employer]) 08/12/2021 COVID-19, LNP-s, No Preserve , Michael-sucrose, Ages 12+ ([employer]) 09/09/2021 DTaP Dipth/Tet/Acell Pertussis (Infanrix), Peds 03/02/2007 [...] have money to get more. Patient declined [place] Depression Scale Answer Date Recorded [place] Depression Scale Total 12 02/13/2024 The thought [...] Sign Reading Time Taken Comments Blood Pressure 110/74 02/13/2024 9:05 AM EDT Pulse - - Temperature - - Respiratory Rate - - Oxygen Saturation - - Inhaled Oxygen Concentration - - Weight 112.9 kg (249 lb) 02/13/2024 9:05 AM EDT Height - - Body Mass Index 37.86 02/09/2024 11:50 AM EDT documented in this encounter Progress Notes * Rita Callaway PA-C - 02/13/2024 9:21 AM EDT Gricel Helms presents for visit at 35w3d. BP 110/74 | Wt 112.9 kg (249 lb) | LMP 06/10/2023 (Exact Date) | BMI 37.86 kg/m | BSA 2.33 m Doing relatively well. States she has been experiencing numbness in her right thigh intermittently and was walking down steps on and tripped and fell. Patient reports landing directly on her tailbone. Denies trauma to abdomen. Patient evaluated at [facility] and [facility] OB with work up unremarkable. NST reactive. Patient reports continued tailbone pain. Denies vaginal bleeding, leaking of fluid, vaginal pressure, contractions, abdominal pain, or abnormal vaginal discharge. Patient states she feels good movement. Denies headaches, blurry vision, or right upper quadrant pain. Reports mental health has not been the best lately. States she is "not happy." Denies SI or HI. Wason Zoloft 50mg but did not see benefit and discontinued. She previously was on Effexor and Buspar prior to . She would like to restart her Effexor. Physical Exam General: alert and oriented, no acute distress Pulmonary: normal respiratory effort, no accessory muscle use. Abdomen: gravid, soft, non-tender heart rate: 120-130s bpm Extremities: no edema bilaterally US PREG FOLLOW-UP EACH FETUS - 02/13/2024 8:59 am HISTORY growth COMPARISON 01/29/2024. 07/21/2023. TECHNIQUE Sonographic examination performed. FINDINGS General : Varma Presentation: Vertex heart rate: 141 bpm FARZANA: 13.4 cm which is between the 5th and 50th percentiles for this stage of . This is slightly increased since the prior study. Placenta: Anterior, no previa Anatomy 4-chamber view: Seen Stomach: Seen Kidneys: Seen Bladder: Seen Biometry Biparietal diameter: 8.4 cm, 33w 6d 11th percentile Head circumference: 31.1 cm, 34w 5d 6th percentile Abdominal circumference: 31.0 cm, 35w 0d 37th percentile Femur length: 6.8 cm, 35w 1d 29th percentile Humeral length: 6.1 cm, 35w 2d 58th percentile HC/AC: 1.00 EFW: 2535 g or 5 lb 9 oz. 28th percentile. IMPRESSION IMPRESSION 1. Live Varma 34 weeks 6 days. This represents 6 days delayed growth since the initial ultrasound. Note low percentile head measurements compared with the other biometrics. 2. Normal FARZANA, 13.4. 3. Vertex presentation. ASSESSMENT/PLAN: 1. Supervision of high risk , antepartum - GBS collected today. Advised if positive, will require antibiotics during delivery - s/p fall --doing well. Advised Tylenol for pain PRN. Positive FHT movements. No bleeding or LOF. - Repeat growth scan today for high fundal height dates reviewed as above, WNL. FARZANA 13.4cm. EFW 28%. Vertex presentation. Reviewed head measurements. Suspect secondary to head within pelvis and inaccurate. Discussed with on- call MFM, Dr. Trejo, and did not recommend any additional testing at this time. - GROUP B STREP CULTURE/PCR 2. Depression complicating , antepartum - previously tried Zoloft without relief. Offered referral to women's behavior health but patient declined. Patient would like to restart her Effexor. Discussed risk vs benefit. Increased risk of withdrawal symptoms reviewed. Patient verbalized understanding and would like to proceed with treatment of her anxiety/depression which I feel is reasonable. She is at increased risk anxiety/depression given history and if remains untreated. Rx sent to start Effexor 37.5mg daily. Counseled patient to call triage/go to labor and delivery if she has any vaginal bleeding, leaking of fluid, vaginal pressure, 6 or more painful contractions in an hour, abdominal pain, decreased movements, headaches, blurry vision, or right upper quadrant pain. Patient verbalized understanding. RTO in 1 weeks for return appointment or sooner if any concerns. Rita Callaway PA-C documented in this encounter Nursing Notes * Lesvia Razo CCMA - 02/13/2024 9:08 AM EDT Pt here for sheila visit - reports fall last week on . Went to [facility] ED and was seen at [facility] OB on the following day, Monday. Had a few episodes of spotting on Monday. None since. documented in this encounter Plan of Treatment Upcoming Encounters Date Type Department Care Team (Late st Contact Info) Description 02/20/2024 8:00 AM EDT Office Visit Gynecology/Obstetrics [facility] [address] [place] [address] Coco Farrell CRNP [address] [place] [address] 09/10/2024 9:20 AM EST Telemedicine Endocrinology [address] [place] [phone] Remy Tavarez, [address] [place] [address] Pending Results Name Type Priority Associated Diagnoses Date /Time GROUP B STREP CULTURE/PCR Lab Routine Supervision of high risk , antepartum 02/13/2024 11:05 AM EDT Health Maintenance Due Date Last Done Comments [...] this encounter Medical Devices Implanted Type Area Ground Crewman Device Identifier Shelf Expiration Date Model / Serial / Lot K-Wire .062 9in 1600-962ns - [id number] Implanted:Q[place] 2 [place] [facility] [place] [employer]ire 1600-962NS / / K-Wire .045 9in [id number] - [id number] Implanted:Qty: 1 on 05[place]22/2007 [place] [facility] [place] [employer] 1600-945NS / / documented as of this encounter Visit Diagnoses Diagnosis Supervision of high risk , antepartum- Primary Depression complicating , antepartum Mental disorders of mother, antepartum documented in this encounter Advance Directives * Full Code (Latest Code Status on File) Date Activated Date Inactivated Comments 09/30/2022 10:47 AM 09/30/2022 5:09 PM This order reflects the patients wishes and were consensually agreed upon. Question Answer Comments Discussion of Advance Directives occurred with: Patient * Full Code Date Activated Date Inactivated Comments 07/27/2021 11:55 AM 07/27/2021 5:31 PM This order r eflects the patients wishes and were consensually agreed upon. Question Answer Comments Discussion of Advance Directives occurred with: Not Discussed * Full Code Date Activated Date Inactivated Comments 05/22/2007 10:49 AM 05/22/2007 9:07 PM Care Teams Mortgage Loan Coordinator Relationship Specialty Start Date End Date Freddie Pierre MD [address] [place] [id number] PCP - General Family Medicine 05/30/13 documented as of this encounter
--- OUTSIDE RECORDS SUMMARY | 2024-03-12 01:26 | External Medical Summary | Summary of Care ---
Author Name Unknown Organization [facility] Address [address] [place] [address] Phone [phone] Care Team Providers Care Multimedia Manager Name Role Phone Freddie Pierre MD Primary Care Provider [phone] Reason for Visit * Reason Comments Return Visit Encounter Details Date Type Department Care Team (Late st Contact Info) Description 02/13/2024 9:15 AM EDT Office Visit Gynecology/Obstetics [place] [address] [place] [address] Rita Callaway PA-C [address] [place] [address] Supervision of high risk , [...] is going to send blood sugars via [employer]. Tdap vaccine completed. GBS culture at 36 weeks. Completed influenza vaccine and covid vaccine. Formula feeding. contraception: condoms. Needs scheduled induction due to patient's fiance being ordnance truck installation mechanic. [place] delivery. Medication exposure during first [...] mRNA, LNP-s, No Pre serve, 2-Dose Series ([employer]) 08/12/2021 COVID-19, LNP-s, No Preserve , Michael-sucrose, Ages 12+ ([employer]) 09/09/2021 DTaP Dipth/Tet/Acell Pertussis (Infanrix), Peds 03/02/2007 [...] have money to get more. Patient declined [place] Depression Scale Answer Date Recorded [place] Depression Scale Total 4 07/18/2023 The thought [...] Denies trauma to abdomen. Patient evaluated at [facility] and [facility] OB with work up unremarkable. NST [...] fall last week on . Went to [facility] ED and was seen at [facility] OB on the following day, Monday. Had a few episodes of spotting on Monday. None since. documented in this encounter Plan of Treatment Upcoming Encounters Date Type Department Care Team (Late st Contact Info) Description 02/20/2024 8:00 AM EDT Office Visit Gynecology/Obstetrics [facility] [address] [place] [address] Coco Farrell CRNP [address] [place] [address] 09/10/2024 9:20 AM EST Telemedicine Endocrinology [address] [place] [phone] Remy Tavarez, [address] [place] [address] Pending Results Name [...] this encounter Medical Devices Implanted Type Area Chargeback Specialist Device Identifier Shelf Expiration Date Model / Serial / Lot K-Wire .062 9in 1600-962ns - [id number] [place]ed:[place] 2 [place] [facility] [place] [employer] 1600-962NS / / K-Wire .045 9in 1600-945ns - [id number] Implanted:Qty: 1 on 05[facility]/2007 [facility] [...] 10:49 AM 05/22/2007 9:07 PM Care Teams Multimedia Manager Relationship Specialty Start Date End Date Freddie Pierre MD [address] [place] [id number] PCP - General Family Medicine 05/30/13 documented as of this encounter
[2024-03-12] MEDS: ACETAMINOPHEN 500 MG TAB PO PRN (05:52)
--- NOTE | 2024-03-12 08:19 | Labor Progress Brief Note ---
Date of Service March 12, 2024 Assessment & Plan Admission and Anticipated Discharge Date Admission Date: March 11, 2024 Physical Exam Genitourinary: Manual OB Exam: + cervical dilation 1 cm and 2 cm, + cervical effacement 50% and + station high OB Exam Monitor Tracing: + external FHT monitor used, + external uterine monitor used, + category I and + normal FHT variability Results & Data Vital Signs (Past 12 Hours) Vital Signs Temp Pulse Resp BP 03/12/24 08:06 36.8 C 78 22 122/78 03/12/24 04:54 36.8 C 74 18 111/64 03/12/24 02:46 18 03/12/24 02:46 36.8 C 18 03/12/24 00:48 86 130/73 03/12/24 00:47 18 03/12/24 00:47 37.0 C 18 03/11/24 22:44 36.8 C 03/11/24 21:16 18 03/11/24 21:16 36.8 C 18
[2024-03-12] MEDS: LACTATED RINGER'S 1,000 ML IV PRN (08:21)
[2024-03-12] MEDS: ONDANSETRON INJ 2 MG/ML 2 ML VIAL IV PRN (08:27)
[2024-03-12] MEDS: BUTORPHANOL TARTRATE 2 MG/ML VIAL IV PRN (08:49)
[2024-03-12] MEDS: OXYTOCIN 30 UNITS/NSS 30 UNITS/500 ML BAG IV PRN (13:54)
[2024-03-12] MEDS ORDERED: ROPIVACAINE 0.5% PF 5 MG/ML 20 ML VIAL EPI PRN (15:50)
[2024-03-12] MEDS ORDERED: diphenhydrAMINE 50 MG/ML VIAL IV PRN (15:50)
[2024-03-12] MEDS ORDERED: NALOXONE HCL 1 MG in SODIUM CHLORIDE 0.9% 1,000 ML IV PRN (15:50)
[2024-03-12] MEDS ORDERED: fentaNYL citrate PF 100 MCG/2 ML VIAL EPI PRN (15:50)
[2024-03-12] MEDS ORDERED: SODIUM CHLORIDE 0.9% PF INJ 10 ML VIAL EPI PRN (15:50)
[2024-03-12] MEDS ORDERED: NALOXONE HCL 0.4 MG/1 ML VIAL/CARP IV PRN (15:50)
[2024-03-12] MEDS ORDERED: ePHEDrine sulfate 50 MG/ML AMP IV PRN (15:50)
[2024-03-12] MEDS ORDERED: NALBUPHINE HCL 5 MG in SYRINGE 0 ML IV PRN (15:50)
[2024-03-12] MEDS ORDERED: BUPIVACAINE 0.25% PF 30 ML VIAL EPI PRN (15:50)
[2024-03-12] MEDS ORDERED: LIDOCAINE 2% MPF LOCAL 5 ML VIAL EPI PRN (15:50)
--- NOTE | 2024-03-12 15:50 | Anesthesiology Consultation ---
Date of Service March 12, 2024 Assessment & Plan Chart Review Chart Review: Acceptable Risk for Labor Epidural History Height/Weight Height: 5 ft 8 in Weight: 119.748 kg Allergies Allergy/AdvReac Type Severity Reaction Status Date / Time tizanidine Allergy Vomiting Verified 03/11/24 18:30 Medications Home Medications Medication Instructions Recorded Confirmed Last Taken aspirin 81 mg chewable tablet 81 mg PO DAILY 03/11/24 03/11/24 03/10/24 cyanocobalamin (B12)-cobamamide 1,000 marianne sublingual DAILY 03/11/24 03/11/24 03/10/24 5,000 mcg-100 mcg sublingual lozenge (B12) ferrous sulfate 325 mg (65 mg 325 mg PO DAILY 03/11/24 03/11/24 03/10/24 iron) tablet (iron) vitamins-iron fumarate 65 1 tab PO DAILY 03/11/24 03/11/24 03/10/24 mg iron-folic acid 1 mg tablet venlafaxine 75 mg tablet 75 mg PO DAILY 03/11/24 03/11/24 03/10/24 Active Medications Generic Name Dose Route Start Last Admin Trade Name Freq PRN Reason Stop Dose Admin Acetaminophen 1,000 mg 03/11/24 19:36 03/12/24 05:52 Acetaminophen 500 Mg Tab PO 04/10/24 19:35 1,000 mg Q8H PRN Administration Pain Butorphanol Tartrate 1 mg 03/12/24 08:39 03/12/24 08:49 Butorphanol Tartrate 2 Mg/Ml Vial IV 04/11/24 08:38 1 mg Q2HWA PRN Administration Pain Lactated Ringer's 1,000 mls @ 125 mls/hr 03/11/24 19:36 03/12/24 15:22 Lr IV 03/13/24 19:35 999 mls/hr .Q8H PRN Administration L&D Protocol Protocol Oxytocin 30 units in 500 mls @ 3 mls/hr 03/12/24 13:36 03/12/24 14:30 Pitocin 30 Units/Nss IV 03/14/24 13:35 0.18 units/hr .Q24H PRN 3 mls/hr Labor Induction/Augmentation Titration Protocol 0.18 UNITS/HR Misoprostol 50 mcg 03/11/24 20:45 03/12/24 14:45 Misoprostol 50 Mcg Tab PO 04/10/24 20:44 Not Given Q4 JOSÉ MIGUEL Ondansetron HCl 4 mg 03/12/24 07:29 03/12/24 08:27 Ondansetron Inj 2 Mg/Ml 2 Ml Vial IV 04/11/24 07:28 4 mg Q4H PRN Administration Nausea Past Medical History Medical History Pre-diabetes Migraines Anemia PCOS (polycystic ovarian syndrome) On metformin and mounjaro prior to Anxiety on effexor daily Past Family History Family History Other No known health problems Past Surgical History Surgical History H/O laparoscopy cyst removed from ovaries. Social History Smoking Status: Former smoker Smoking End Date: 11/2023 Hx Alcohol Use: No Hx Substance Use: No substance use type: does not use Physical Exam Vital Signs Last Vital Signs Temp 36.8 C 03/12/24 13:45 Pulse 84 03/12/24 15:44 Resp 22 03/12/24 13:45 BP 134/59 L 03/12/24 15:01 Pulse Ox 100 03/12/24 15:44 Constitutional WD/WN, vitals as above Eyes PERRL, conjunctivae normal, anicteric sclerae Respiratory normal respiratory effort, lungs clear to auscultation Cardiovascular Rate/Rhythm: regular rate and regular rhythm Gastrointestinal (Abdomen) Inspection/Auscultation: abdomen normal to inspection Musculoskeletal Extremities: extremities normal to inspection Skin no rashes, warm and dry Neurologic patellar DTR's 2+ bilat, sensation intact Psychiatric A+Ox3, euthymic affect Genitourinary OB Exam Abdomen: + fundal height and + vertex Manual OB Exam: + cervical dilation + 1 cm and + 2 cm, + cervical effacement + 50% and + station + high OB Exam Monitor Tracing: + external FHT monitor used, + external uterine monitor used, + category I and + normal FHT variability Testing Laboratory Results 03/11/24 20:42
[2024-03-12] MEDS: LIDOCAINE 2%/EPINEPHRINE 1:200,000 20 ML PF ONE (16:11)
[2024-03-12] MEDS: fentANYL 2 MCG/ML BUPIVacaine 0.125%-NSS 100ML BAG EPI PRN (16:11)
--- NOTE | 2024-03-12 17:58 | Labor Progress Brief Note ---
Date of Service March 12, 2024 Assessment & Plan Admission and Anticipated Discharge Date Admission Date: March 11, 2024 Physical Exam Genitourinary: Manual OB Exam: + cervical dilation 3 cm, + cervical effacement 80% and + station -2 OB Exam Monitor Tracing: + external FHT monitor used, + external uterine monitor used, + category I and + normal FHT variability Results & Data Vital Signs (Past 12 Hours) Vital Signs Temp Pulse Resp BP Pulse Ox 03/12/24 17:56 77 100 03/12/24 17:51 75 100 03/12/24 17:50 78 92 03/12/24 17:46 82 100 03/12/24 17:44 78 03/12/24 17:44 75 140/63 92 03/12/24 17:41 73 100 03/12/24 17:36 82 99 03/12/24 17:31 70 100 03/12/24 17:29 68 130/75 03/12/24 17:28 73 88 L 03/12/24 17:26 72 100 03/12/24 17:21 79 100 03/12/24 17:16 80 100 03/12/24 17:15 75 123/69 03/12/24 17:11 83 100 03/12/24 17:06 77 100 03/12/24 17:05 74 91 03/12/24 17:01 73 100 03/12/24 16:59 67 127/72 03/12/24 16:56 69 100 03/12/24 16:52 69 134/75 03/12/24 16:51 69 100 03/12/24 16:45 160/126 H 03/12/24 16:24 70 107/57 L 03/12/24 16:22 83 114/59 L 03/12/24 16:20 78 110/58 L 03/12/24 16:18 93 H 124/71 03/12/24 16:16 78 110/60 03/12/24 16:14 36.9 C 78 105/59 L 03/12/24 16:12 81 113/62 03/12/24 16:10 82 113/59 L 03/12/24 16:09 84 99 03/12/24 16:08 85 114/58 L 03/12/24 16:06 89 137/65 03/12/24 16:04 91 H 149/65 H 97 03/12/24 16:01 95 H 93 03/12/24 15:59 87 100 03/12/24 15:58 96 H 122/81 03/12/24 15:54 93 H 100 03/12/24 15:49 86 100 03/12/24 15:44 84 100 03/12/24 15:39 86 100 03/12/24 15:34 90 99 03/12/24 15:01 83 134/59 L 03/12/24 13:58 89 110/73 03/12/24 13:45 22 03/12/24 13:45 36.8 C 22 03/12/24 10:29 36.8 C 03/12/24 08:06 36.8 C 78 22 122/78
[2024-03-12] MEDS: fentaNYL citrate PF 100 MCG/2 ML VIAL ONE (18:42)
[2024-03-12] MEDS: fentANYL 2 MCG/ML BUPIVacaine 0.125%-NSS 100ML BAG ONE (18:43)
[2024-03-12] MEDS: SODIUM CHLORIDE 0.9% PF INJ 10 ML VIAL ONE (18:43)
[2024-03-12] MEDS: ePHEDrine sulfate 50 MG/ML AMP ONE (18:43)
[2024-03-12] MEDS: BUPIVACAINE 0.25% PF 30 ML VIAL ONE (18:43)
[2024-03-12] MEDS: BUPIVACAINE 0.25% PF 30 ML VIAL EPI STA (18:44)
[2024-03-12] MEDS: fentaNYL citrate PF 100 MCG/2 ML VIAL EPI STA (18:44)
[2024-03-12] MEDS: LIDOCAINE 2%/EPINEPHRINE 1:200,000 20 ML PF EPI STA (18:45)
[2024-03-12] MEDS: SODIUM CHLORIDE 0.9% PF INJ 10 ML VIAL EPI STA (18:45)
[2024-03-12] MEDS: VENLAFAXINE HCL 37.5 MG TAB PO SCH (21:34)
--- NOTE | 2024-03-12 22:15 | Labor Progress Brief Note ---
Date of Service March 12, 2024 Assessment & Plan Admission and Anticipated Discharge Date Admission Date: March 11, 2024 Physical Exam Genitourinary: Manual OB Exam: + cervical dilation 4 cm, + cervical effacement 90%, + station -2 and + amniotic fluid clear OB Exam Monitor Tracing: + external FHT monitor used, + external uterine monitor used, + category I and + normal FHT variability AROM forebag with Amni-sure Results & Data Vital Signs (Past 12 Hours) Vital Signs Temp Pulse Resp BP Pulse Ox 03/12/24 22:08 66 96 03/12/24 22:03 69 96 03/12/24 22:02 65 131/63 03/12/24 21:59 71 94 03/12/24 21:58 69 97 03/12/24 21:54 70 94 03/12/24 21:53 70 95 03/12/24 21:48 70 96 03/12/24 21:47 71 94 03/12/24 21:43 70 95 03/12/24 21:38 68 98 03/12/24 21:33 69 96 03/12/24 21:30 36.5 C 72 109/62 03/12/24 21:28 70 98 03/12/24 21:23 71 97 03/12/24 21:18 77 95 03/12/24 21:13 79 95 03/12/24 21:10 77 94 03/12/24 21:08 74 96 03/12/24 21:05 76 94 03/12/24 21:03 88 96 03/12/24 21:00 75 134/65 03/12/24 20:58 76 97 03/12/24 20:53 74 96 03/12/24 20:48 85 98 03/12/24 20:43 81 98 03/12/24 20:38 71 100 03/12/24 20:33 93 H 100 03/12/24 20:31 88 120/66 03/12/24 20:28 94 H 99 03/12/24 20:23 80 100 03/12/24 20:18 79 100 03/12/24 20:12 81 98 03/12/24 20:07 66 99 03/12/24 20:02 72 100 03/12/24 20:01 71 129/70 03/12/24 19:57 71 99 03/12/24 19:52 74 99 08/20/24 19:47 68 97 03/12/24 19:42 77 99 03/12/24 19:37 73 98 03/12/24 19:32 75 99 03/12/24 19:30 36.8 C 71 18 135/84 03/12/24 19:27 75 100 03/12/24 19:22 81 99 03/12/24 19:18 78 91 03/12/24 19:17 76 97 03/12/24 19:15 74 139/72 03/12/24 19:12 74 100 03/12/24 19:07 75 98 03/12/24 19:02 77 100 03/12/24 19:01 87 168/96 H 03/12/24 18:57 81 100 03/12/24 18:52 78 100 03/12/24 18:47 73 100 03/12/24 18:46 83 91 03/12/24 18:44 69 139/68 03/12/24 18:42 69 100 03/12/24 18:37 76 99 03/12/24 18:32 76 100 03/12/24 18:29 65 141/70 H 03/12/24 18:27 64 100 03/12/24 18:22 70 100 03/12/24 18:17 75 100 03/12/24 18:14 75 139/65 03/12/24 18:12 76 99 03/12/24 18:07 70 100 03/12/24 18:01 76 100 03/12/24 18:00 22 03/12/24 18:00 36.5 C 22 03/12/24 17:59 72 140/71 03/12/24 17:56 77 100 03/12/24 17:51 75 100 03/12/24 17:50 78 92 03/12/24 17:46 82 100 03/12/24 17:44 78 03/12/24 17:44 75 140/63 92 03/12/24 17:41 73 100 03/12/24 17:36 82 99 03/12/24 17:31 70 100 03/12/24 17:29 68 130/75 03/12/24 17:28 73 88 L 03/12/24 17:26 72 100 03/12/24 17:21 79 100 03/12/24 17:16 80 100 03/12/24 17:15 75 123/69 03/12/24 17:11 83 100 03/12/24 17:06 77 100 03/12/24 17:05 74 91 03/12/24 17:01 73 100 03/12/24 16:59 67 127/72 03/12/24 16:56 69 100 03/12/24 16:52 69 134/75 03/12/24 16:51 69 100 03/12/24 16:45 160/126 H 03/12/24 16:24 70 107/57 L 03/12/24 16:22 83 114/59 L 03/12/24 16:20 78 110/58 L 03/12/24 16:18 93 H 124/71 03/12/24 16:16 78 110/60 03/12/24 16:14 36.9 C 78 105/59 L 03/12/24 16:12 81 113/62 03/12/24 16:10 82 113/59 L 03/12/24 16:09 84 99 03/12/24 16:08 85 114/58 L 03/12/24 16:06 89 137/65 03/12/24 16:04 91 H 149/65 H 97 03/12/24 16:01 95 H 93 03/12/24 15:59 87 100 03/12/24 15:58 96 H 122/81 03/12/24 15:54 93 H 100 03/12/24 15:49 86 100 03/12/24 15:44 84 100 03/12/24 15:39 86 100 03/12/24 15:34 90 99 03/12/24 15:01 83 134/59 L 03/12/24 13:58 89 110/73 03/12/24 13:45 22 03/12/24 13:45 36.8 C 22 03/12/24 10:29 36.8 C
[2024-03-12] MEDS: CALCIUM CARBONATE 500 MG CHEWABLE TAB PO PRN (23:26)
[2024-03-13] MEDS: NURSING L&D Epidural Breakthrough Pain Update ONE (01:32)
[2024-03-13] MEDS ORDERED: Nursing to Pharmacy Communication SCH ×3 (02:15→22:00)
[2024-03-13] MEDS: METHYLERGONOVINE MALEATE 0.2 MG/ML AMP ONE (10:22)
[2024-03-13] MEDS: miSOPROStoL 200 MCG TAB ONE (10:24)
[2024-03-13] MEDS: OXYTOCIN 30 UNITS/NSS 30 UNITS/500 ML BAG IV PRN (10:25)
[2024-03-13] MEDS: TRANEXAMIC ACID / 0.7% NACL 1000MG/100ML BAG IV ONE (10:26)
[2024-03-13] MEDS ORDERED: OXYTOCIN 30 UNITS/NSS 30 UNITS/500 ML BAG IV PRN (10:51)
[2024-03-13] MEDS ORDERED: ACETAMINOPHEN 325 MG TAB PO PRN (10:51)
[2024-03-13] MEDS ORDERED: HYDROCORTISONE ACETATE 25 MG SUPP PR PRN (10:51)
[2024-03-13] MEDS ORDERED: bisacodyL 10 MG SUPP PR PRN (10:51)
[2024-03-13] MEDS ORDERED: miSOPROStoL 200 MCG TAB PR ONE (10:51)
[2024-03-13] MEDS ORDERED: BENZOCAINE 20% SPRY 85 APPLN/85 GM CAN EXT PRN (10:51)
[2024-03-13] MEDS ORDERED: TRANEXAMIC ACID 100 MG/ML 10 ML VIAL IV ONE (10:52)
--- NOTE | 2024-03-13 10:58 | Delivery Summary ---
Vaginal Delivery Summary Date of Service March 13, 2024 Vaginal Delivery Summary Patient was found to be fully dilated and desired to push. She pushed for about 30 min and delivered the head and then shoulders with minimal traction. The baby was handed off to the mother. The cord was clampedx2 and cut. The vagina and perineum were checked and found to have 1st degree perineal laceration. It was repaired with 2/0 vicryl. The placenta was delivered spontaneously as intact and complete. The uterus was explored and emptied of blood cloths otherwise found to be empty. IV Oxytocin was started. Patient was still bleeding despite uterine massage. IM Methergine, rectal Cytotec tbs were placed. IV Tranexamic acid was started. Decision was made to place TAMIR device. After emptying blood cloths from uterine cavity it was placed manually without difficulty and connected to the suction. Its baloon was filled with 120 ml of water. QBL was 848 ml. The fundus was firm. The baby was a viable male , Apgars 8/9, the weight is pending. The mother and the baby tolerated the procedure well. No complications happened other than hemorrhage. I was present during whole procedure.
[2024-03-13] MEDS ORDERED: TRANEXAMIC ACID / 0.7% NACL 1,000 MG/100 ML BAG IV ONE (11:15)
[2024-03-13] MEDS ORDERED: SODIUM CHLORIDE 0.9% 250 ML IV PRN ×2 (11:17→13:10)
[2024-03-13] MEDS: ceFAZolin 3,000 MG in DEXTROSE 5% 50 ML IV STA (11:28)
[2024-03-13] MEDS: METHYLERGONOVINE MALEATE 0.2 MG/ML AMP IM ONE (12:21)
[2024-03-13] MEDS: CARBOPROST TROMETHAMINE 250 MCG/ML AMPUL ONE (12:22)
--- NOTE | 2024-03-13 13:24 | Anesthesia Procedure Note ---
Date of Service March 13, 2024 Anesthesia Post Epidural Note Vital Signs Vital Signs: Temp Pulse Resp BP Pulse Ox 36.6 C 93 H 16 128/78 97 03/13/24 11:30 03/13/24 13:18 03/13/24 11:30 03/13/24 13:16 03/13/24 13:18 Pain Intensity Vaginal: Pain Intensity: 7 Notes Mental Status: alert / awake / arousable and participated in evaluation Nausea / Vomiting: adequately controlled Pain: adequately controlled Airway Patency, RR, SpO2: stable & adequate BP & HR: stable & adequate Hydration State: stable & adequate Neuraxial Anesthesia: was administered and sensory block is resolving Anesthetic Complications: no major complications apparent Epidural: Removed without complications and With tip intact
[2024-03-13] MEDS: METHYLERGONOVINE MALEATE 0.2 MG TAB PO SCH (13:52)
[2024-03-13 14:37] LABS: Basophils # (auto) 0.04 K/uL (0.00-0.20); Basophils % (auto) 0.2 %; Eosinophils # (auto) 0.02 K/uL (0.00-0.50); Eosinophils % (auto) 0.1 %; Hematocrit (blood only) 34.1 % (37.0-47.0); Hemoglobin 11.4 g/dl (12.0-16.0); Immature Granulocytes % (auto) 0.6 %; Lymphocytes # (auto) 1.41 K/uL (1.20-3.40); Lymphocytes % (auto) 8.5 %; Mean Corpuscular Hemoglobin 30.2 pg (25.0-34.0); Mean Corpuscular Hgb Conc 33.4 g/dL (32.0-36.0); Mean Corpuscular Volume 90.2 fL (80.0-100.0); Mean Platelet Volume 9.6 fL (9.4-12.4); Monocytes % (auto) 4.8 %; Neutrophils % (auto) 85.8 %; Platelet Count 227 K/uL (130-400); RDW Coefficient of Variation 13.3 % (11.5-14.5); RDW Standard Deviation 43.7 fL (36.4-46.3); Red Blood Count 3.78 M/uL (4.20-5.40); White Blood Count 16.67 K/ul (4.8-10.8)
[2024-03-13 15:13] LABS: Fibrinogen 521 mg/dl (184-400); INR 0.9 (0.9-1.1); Partial Thromboplastin Time 27 Seconds (21-31)
[2024-03-13] MEDS: MEASLES, MUMPS & RUBELLA VIRUS VACCINE (MMR) 0.5ML VIAL SQ ONE (16:24)
[2024-03-13] MEDS: DIPHTHER/TETAN/PERTUS Vaccine (Tdap, Adol/Adult) 0.5mL IM ONE (16:24)
[2024-03-13] MEDS: ceFAZolin 2000MG 2,000 MG/15 ML SYR IV SCH (17:18)
[2024-03-13] MEDS: IBUPROFEN 600 MG TAB PO PRN (19:25)
[2024-03-13] MEDS: oxyCODONE/ACETAMINOPHEN 5mg/325mg TAB PO PRN (19:26)
[2024-03-13] MEDS: DOCUSATE SODIUM 100 MG CAP PO SCH (20:32)
[2024-03-14] MEDS: ceFAZolin 2000MG 2,000 MG/15 ML SYR IV ONE (00:44)
[2024-03-14 03:41] VITALS: RESP 16
--- NOTE | 2024-03-14 06:28 | Obstetrical Progress Note ---
Date of Service March 14, 2024 Assessment & Plan Admission and Anticipated Discharge Date Admission Date: March 11, 2024 Subjective Patient is seen and examined. She feels well, no complaints. Ambulating without dizziness Voiding without difficulty Tolerating regular diet with out N&V Bleeding is minimal No fever/ chills/ CP/ SOB/ N&V/ Leg pain Bottle feeding without problems Vital Signs Temp Pulse Resp BP Pulse Ox O2 Del Method 03/14/24 03:35 36.9 C 71 16 94/61 L 98 Room Air 03/14/24 00:15 36.9 C 88 18 118/69 98 Room Air 03/13/24 20:48 37.1 C 98 H 18 121/74 97 Room Air Lab Results 03/11/24 03/11/24 03/13/24 Range/Units 19:15 20:42 14:18 WBC 10.78 16.67 H (4.8-10.8) K/ul RBC 3.98 L 3.78 L (4.20-5.40) M/uL Hgb 12.0 11.4 L (12.0-16.0) g/dl Hct 36.1 L 34.1 L (37.0-47.0) % MCV 90.7 90.2 (80.0-100.0) fL MCH 30.2 30.2 (25.0-34.0) pg MCHC 33.2 33.4 (32.0-36.0) g/dL RDW Std Deviation 43.2 43.7 (36.4-46.3) fL RDW Coeff of [place] 13.0 13.3 (11.5-14.5) % Plt Count 220 227 (130-400) K/uL MPV 9.4 9.6 (9.4-12.4) fL Immature Gran % (Auto) 0.6 % Neut % (Auto) 85.8 % Lymph % (Auto) 8.5 % [place] % (Auto) 4.8 % Eos % (Auto) 0.1 % Baso % (Auto) 0.2 % Neut # (Auto) 14.30 H (1.40-6.50) K/uL Lymph # (Auto) 1.41 (1.20-3.40) K/uL [place]oup # (Auto) 0.80 H (0.11-0.59) K/uL Eos # (Auto) 0.02 (0.00-0.50) K/uL Baso # (Auto) 0.04 (0.00-0.20) K/uL Immature Gran # (Auto) 0.10 (0.01-0.20) K/uL PT 10.0 (9.0-12.0) Seconds INR 0.9 (0.9-1.1) APTT 27 (21-31) Seconds PTT Ratio 1.0 Fibrinogen 521 H (184-400) mg/dl Amniotic Protein POS Treponema pallidum Ab Negative (Negative) Blood Type O Positive Blood Type Recheck O Positive Antibody Screen NEGATIVE Crossmatch See Detail PE: General: Alert, orientedx3, NAD Abd: soft, NT, fundus firm, below Umbilicus Perineum intact, Lochia rubra minimal Ext; NT, no edema AP: 23 yo s/p , hemorrhage, controlled by medications and [place], ppd# 1 VSS Afebrile doing well Continue routine care Bleeding minima Desires d/c today, pending CBC All questions were answered When to call D/C home this afternoon, f/u in office Results & Data Vital Signs (Past 12 Hours) Vital Signs Temp Pulse Resp BP Pulse Ox O2 Del Method 03/14/24 03:35 36.9 C 71 16 94/61 L 98 Room Air 03/14/24 00:15 36.9 C 88 18 118/69 98 Room Air 03/13/24 20:48 37.1 C 98 H 18 121/74 97 Room Air
[2024-03-14 06:58] LABS: Hematocrit (blood only) 27.1 % (37.0-47.0); Hemoglobin 9.3 g/dl (12.0-16.0); Mean Corpuscular Hemoglobin 30.5 pg (25.0-34.0); Mean Corpuscular Hgb Conc 34.3 g/dL (32.0-36.0); Mean Corpuscular Volume 88.9 fL (80.0-100.0); Mean Platelet Volume 9.8 fL (9.4-12.4); Platelet Count 189 K/uL (130-400); RDW Coefficient of Variation 13.4 % (11.5-14.5); RDW Standard Deviation 43.7 fL (36.4-46.3); Red Blood Count 3.05 M/uL (4.20-5.40); White Blood Count 12.18 K/ul (4.8-10.8)
[2024-03-14] MEDS: AMOXICILLIN/CLAVULANATE 875 MG TAB PO SCH (07:57)
[2024-03-14] MEDS: FERROUS SULFATE 325 MG TAB PO SCH (07:57)
[2024-03-14] MEDS: PRENATAL VITAMIN 1 TAB PO SCH (07:57)
[2024-03-14 08:07] VITALS: BP 101/63; PULSE 82; TEMP 98.1; O2SAT 97
[2024-03-14 08:12] LABS: Creatinine Clr Calc Pharmacy 193.8 ml/min; Est GFR (African American) 148.3 ml/min
--- NOTE | 2024-03-14 08:39 | Obstetrical Progress Note ---
Date of Service March 14, 2024 Assessment & Plan Admission and Anticipated Discharge Date Admission Date: March 11, 2024 OB Progress Note abdomen soft and non tender ambulating well no calf tenderness vaginal bleeding scant hgb 9.3 Results & Data Vital Signs (Past 12 Hours) Vital Signs Temp Pulse Resp BP Pulse Ox O2 Del Method 03/14/24 08:00 Room Air 03/14/24 07:59 36.7 C 82 16 101/63 97 Room Air 03/14/24 03:35 36.9 C 71 16 94/61 L 98 Room Air 03/14/24 00:15 36.9 C 88 18 118/69 98 Room Air 03/13/24 20:48 37.1 C 98 H 18 121/74 97 Room Air
[2024-03-14] MEDS ORDERED: Nursing to Pharmacy Communication SCH (09:45)
[2024-03-14] MEDS ORDERED: METHYLERGONOVINE MALEATE 0.2 MG TAB PO SCH (09:45)
[2024-03-14] MEDS ORDERED: bisacodyL 5 MG TABEC PO SCH (20:00)
== END 2024-03-14 13:45 | disposition home health service (06) | DRG 768 ==
LOC: OPB 18:01 → 4S1 18:03 → 4E2 03-13 15:53